=== PATIENT | male | born 1950 | race Caucasian/White ===

== ENCOUNTER 2022-10-02 07:30 | Outpatient (RCR) | payer MEDICARE, BC, SELFPAY ==
--- NOTE | 2022-08-21 09:11 | PT.OPEX ---
PT [facility] PT [facility] Outpatient Eval Start: 08/20/22 15:19 Freq: Status: Active Protocol: Document 08/21/22 09:05 SHASHANK (Rec: 08/21/22 09:10 SHASHANK [id number]) E-signed By Carolyn Duenas PT Physical Therapy Outpatient Evaluation Insurance Information Recert Due Date 11/13/22 Insurance Name Medicare B Medical Diagnosis Rt Hip Bursitis and ABD Tendonopathy Treating Diagnosis Pain at Rt hip/lat thigh Impaired stand/walk tolerance Reduced ease of ADL's/hobbies Reduced ease of A/D stairs and squatting Referring MD Dr Gabe Ladd Subjective Subjective Demian reports having Rt lateral hip and thigh pain for the past 2-3 months. He denies having any injury or incident which may have initiated pain. He did have a Rt MARICRUZ completed 09/18/2016, but the Dr took X-Rays and the replacement is secure and not involved with current pain reported. Sleeping is ok, unless he is on the Rt side for too long. Sitting is fine. Pain is increased with standing more than about [address] or walking more than about 10 min. Really reduces his ability to stay on task and complete any activities - yard work, home chores or even just standing socializing with friends. Pain is not constant, but when present it can be 7-10/10 along full side of thigh to knee. He denies ant/groin pain . Pain Comments 7-10/10 average when present. Pain free with sitting. Lateral thigh from hip to knee Taking Ibuprofen and Excedrine for pain Date of Last Physician Visit 09/05/22 Date of Surgery (If applicable) 09/18/16 Current Work Status Retired Precautions Treatment Precautions/Contraindications Arthritis, metal implante, Latex allergies, CT scan dye, Weight Bearing Status Full Weight Bearing Therapy Limitations/Systems Review Vision,Hearing Objective Range of Motion Rt hip ABD 0-45 / FF 0-90 / IR 0-10 / ER 0-30 Strength MMT 4-/5 breana hip EXT and ER. ABD and Flex are 5/5 and executed without pain Palpation Pain with pressure directly over Rt greater troch and ABD insertion point Balance & Gait No significant deviation. Slightly widened Betty SLS average 3 sec breana Posture Flattened lumbar spine Assessment Assessment/Impression 72 yo with DX of Rt hip Bursitis and ABD Tendonopathy. He arrived to dept via IND ambulation without any AD. He presents with slightly WBOS with stance and gait, slight increase in toe out posturing/ hip ER. He has flattened lumbar spine, slightly reduced heel to toe gait pattern, but symmetric WB. Deep squat to 65 deg prior to reducing WB into Rt involved LE. SLS 3 sec average breana. AROM is WFL and pain free both active and passively. MMT normal breana hip ABD, FF, however limited in breana EXT and ER 4-/5. Pain with moderate direct pressure over Rt greater troch/ABD insertion. He has reduced standing/walk tolerance, pain with A/D stairs and deep squat . Step up and over with noted breana hip IR and ADD. He will benefit from continued skilled physical therapy to provide DTM/MFR/cupping and progressive stretch/strength program to reduce symptoms and promote goal acquisition. Thank you for this referral. Plan of Care Rehabilitation Potential Good Physical Therapy Goals In 4-6 visits, Demian will be able to: 1. Sit to stand from recliner pain no greater than 5/10 75% of the time 2. A/D flight of 10 steps reciprocally without pain greater than 5/10 75% of the time In 8-10 visits, Demian will be able to: 1. Walk/stand for up to 30 min without pain greater than 3/ 10 90% of the time, resume light house keeping and errands/grocery shopping 2. Resume Breakfast Club with friends/socializing at least 2X/Wk without fear of pain increase and requiring assistance to get back to his car 3. His LTG: to be able to perform light shoveling this Winter without pain greater than 3/10 90% of the time, so as not to rely on friends for assistance. Coordination/Communication With Referral Source Treatment Plan/Direct Interventions Ice/Cold/Vasopneumatic,Joint Mobilization,Manual Therapy, Self-Care/Home Management, Therapeutic Activities, Therapeutic Exercises Frequency/Duration 1X/Wk for 10 visits Patient Will Be Discharged From Therapy Completion of LTG(s),Skills Plateau,Independent w/HEP, Independently Progressing Evaluation Billing Untimed Code Treatment Minutes 27 Complexity Moderate Certification Information Initial Certification Date 08/21/22 Ending Certification Date 11/13/22 Provider Signature Shows Agreement With POC & Medical Necessity Physician Signature & Date Requested Please Sign/Date Here Physician Comment/Change : Physician NPI Number #
== END 2022-11-07 08:37 | disposition home or self-care (01) ==
PROVIDERS: PCP Family Medicine; Visit Provider Orthopaedic Surgery
DX: M70.71 Other bursitis of hip, right hip (principal); Z51.89 Encounter for other specified aftercare
CPT/HCPCS: 97035; 97110; 97140; 97162

== ENCOUNTER 2023-12-02 13:03 | Emergency (ER) | payer MEDICARE, OTHER, SELFPAY ==
[2023-12-02 13:14] VITALS: BP 183/76; PULSE 91; RESP 16; TEMP 37.2; O2SAT 96; BMI 33.0
[2023-12-02] MEDS: diphenhydrAMINE 50 MG/ML inj IVP (13:45)
[2023-12-02] MEDS: HYDROCORTISONE SOD SUCCINATE 50 MG/ML inj 200 MG IVP (13:45)
[2023-12-02 14:16] LABS: Basophils Absolute Auto 0.07 K/uL (0.00-0.30); Basophils Percent Auto 0.8 % (0.0-3.0); Eosinophils Absolute Auto 0.34 K/uL (0.00-0.50); Eosinophils Percent Auto 4.1 % (0.0-7.0); Hematocrit 43.4 % (37.0-53.0); Hemoglobin* 14.5 gm/dL (13.5-17.5); Immature Granulocytes Abs Auto 0.04 K/uL (0.00-0.30); Immature Granulocytes Pct Auto 0.5 %; Lymphocytes Absolute Auto 2.68 K/uL (0.90-2.90); Lymphocytes Percent Auto 32.1 % (20-44); Mean Corpuscular HGB Conc 33 gm/dL (32-36); Mean Corpuscular Hemoglobin 31 pg (26-34); Mean Corpuscular Volume 94 fL (80-100); Monocytes Percent Auto 7.1 % (0.0-11.0); Neutrophils Absolute Auto 4.63 K/uL (1.7-7.0); Neutrophils Percent Auto 55.4 % (42.0-72.0); Platelet Count* 275 K/uL (140-440); RDW Coefficient of Variation % 13.7 % (11.5-15.5); Red Blood Count 4.62 m/uL (4.30-5.90); White Blood Count* 8.35 K/uL (4.50-11.00)
--- NOTE | 2023-12-02 14:16 | CT_ITS ---
Final Report Patient: ROCHELLE WILSON Facility:?[facility] Patient ID:?[id number] Site Patient ID:?[id number]. Site :?[id number] Study:?CT ST Neck W/IV-12/02/2023 3:32:07 PM Ordering Physician:CIARA Final Report: INDICATION: Facial swelling, left jaw pain. TECHNIQUE: Multiplanar CT examination of the soft tissues of the neck was performed after the administration of 112 mL of Isovue 370 intravenous contrast. COMPARISON: None. FINDINGS: Visualized intracranial structures: Trace mucosal thickening of the paranasal sinuses. Otherwise, unremarkable. Aerodigestive: The nasopharynx, oropharynx, hypopharynx and larynx appear unremarkable. The trachea remains patent and midline. The epiglottis is unremarkable. Mild effacement of the left piriform sinus, within normal limits. Tiny left palatine tonsilliths. Otherwise, the palatine tonsils are within normal limits. The base of tongue appears within normal limits. No discrete enhancing mass lesions identified. Salivary glands: There is asymmetric hyperenhancement and enlargement of the left parotid gland. The submandibular and right parotid glands are within normal limits. Thyroid gland: Unremarkable. Vascular: Moderate atherosclerotic calcifications of the aortic arch. Mild atherosclerotic calcifications of the carotid bulbs bilaterally, with probable mild stenosis of the bilateral proximal cervical internal carotid arteries. Otherwise, the vasculature remains patent. Soft tissues: Mild subcutaneous fat stranding involving the superficial soft tissues overlying the left parotid gland, with reactive thickening of the left platysma muscle. No prevertebral soft tissue edema. Lymph nodes: No pathologic lymph nodes by size criteria. Prominent cervical lymph nodes diffusely, likely reactive. Visualized lungs: The visualized lung apices are within normal limits. Dependent atelectasis. Linear bandlike opacification of the lungs bilaterally, likely subsegmental atelectasis or scarring. Bones: No acute osseous abnormalities mild multilevel degenerative changes of the cervical spine. IMPRESSION: Findings compatible with acute left parotitis, with mild overlying soft tissue swelling and reactive inflammation of the left platysma muscle. Please note that all CT scans at this facility use dose modulation, iterative reconstruction, and/or weight-based dosing when appropriate to reduce radiation dose to as low as reasonably achievable. Dictated by Oliverio Holder MD @ 12/03/2023 12:14:06 AM (Electronic Signature)
[2023-12-02 14:18] LABS: Slide Review Reflex No
[2023-12-02 14:20] LABS: Creatinine, Point-of-Care* 1.1 mg/dl (0.6-1.3)
[2023-12-02 14:28] LABS: Chloride* 108 mmol/L (96-114); Sodium* 141 mmol/L (135-149)
[2023-12-02 14:31] LABS: Est. Creatinine Clearance* 66.92; Estimated Glomerular Filt Rate 79 ml/min
[2023-12-02 14:32] LABS: Anion Gap 9 mEq/L (7-15); Blood Urea Nitrogen* 25 mg/dL (7-30); Calcium* 9.6 mg/dL (8.4-10.6); Carbon Dioxide* 24 mmol/L (20-32); Glucose* 142 mg/dL (60-115)
--- NOTE | 2023-12-02 14:57 | ED.GENADULT ---
HPI - General Adult General Chief complaint: Neck Injury/Pain Stated complaint: Swelling, pain L side neck Time Seen by Provider: 12/02/23 13:19 History of Present Illness HPI narrative: Patient is a 73-year-old male presenting for left jaw swelling. He states he knows the swelling this morning. Never had this before. It is says it is starting to get sore but pain is relatively minor. He has dentures and has not been having any mouth or jaw problems recently. Denies fevers, chills, lightheadedness, dizziness, chest pain, shortness of breath, difficulty breathing. States he had something similar happened a while ago at that time was allergic reaction and any felt his throat starting to close up but has not had those symptoms this time. The friend is dry at was the only other time he had jaw swelling like this. At this denies fevers, chills, headache, vision changes, weakness, numbness. No other concerns noted at this time Related Data Home Medications Medication Instructions Recorded Confirmed aspirin 81 mg tablet,delayed 81 mg PO DAILY 08/02/22 08/05/22 release [id number]-[id number]-[id number] 250 1 tab PO Q4-6H PRN 08/05/22 08/05/22 mg-250 mg-65 mg tablet (Excedrin Extra Strength) ibuprofen 200 mg tablet 800 mg PO Q6H PRN 08/05/22 08/05/22 rosuvastatin 10 mg tablet 10 mg PO QPM 12/02/23 12/02/23 tramadol 50 mg tablet 50 mg PO DAILY PRN pain 12/02/23 12/02/23 Allergies Allergy/AdvReac Type Severity Reaction Status Date / Time iodine Allergy Severe Anaphylaxis Verified 12/02/23 13:19 adhesive tape Allergy Rash Verified 08/05/22 09:21 droperidol Allergy Verified 08/05/22 09:21 gadodiamide Allergy Swelling, Verified 08/05/22 09:21 respiratory distress latex Allergy Rash Verified 08/05/22 09:21 oxycodone Allergy headache, Verified 08/05/22 09:21 vomitting Review of Systems Status of ROS: Reports: 6 or more systems reviewed and unremarkable except as noted in History and below [facility] Medical History Osteoarthritis of hip ?M16.9 - Osteoarthritis of hip, unspecified (ICD-10) Alcohol abuse (01/22/12) ?F10.10 - Alcohol abuse, uncomplicated (ICD-10) Alcohol abuse ?F10.10 - Alcohol abuse, uncomplicated (ICD-10) Depression ?F32.A - Depression, unspecified (ICD-10) Arthritis ?M19.90 - Unspecified osteoarthritis, unspecified site (ICD-10) GERD (gastroesophageal reflux disease) ?K21.9 - Gastro-esophageal reflux disease without esophagitis (ICD-10) Elevated cholesterol ?E78.00 - Pure hypercholesterolemia, unspecified (ICD-10) Surgical History Status post total replacement of hip ?Z96.649 - Presence of unspecified artificial hip joint (ICD-10) History of knee surgery ?Z98.890 - Other specified postprocedural states (ICD-10) History of surgery on arm ?Z98.890 - Other specified postprocedural states (ICD-10) History of thoracotomy ?Z98.890 - Other specified postprocedural states (ICD-10) History of right hip replacement ?Z96.641 - Presence of right artificial hip joint (ICD-10) Social History Smoking Status: Current every day smoker What tobacco products do you use: cigarettes Do you use any of these nicotine containing products: None Second hand tobacco smoke exposure: No Non-prescribed substance use: denies use Exam Narrative: Exam Narrative: Const: Well-nourished, Well-developed, in mild distress Eyes: PERRL, no conjunctival injection, and symmetrical lids HENT: Atraumatic external nose and ears. Moist mucous membranes. Neck: Symmetric, trachea midline, No thyromegaly. CVS: RRR, No murmurs or gallops. Peripheral pulses 2+ and equal in all extremities RESP: Unlabored respiratory effort. Clear to auscultation bilaterally. MSK:Extremities w/o deformity, Normal Active ROM Skin: Warm, Dry. No rashes or lesions. Neuro: Normal Muscle tone, No focal neurological deficits. Psych: Awake, Alert, & Oriented x3. Appropriate mood and affect. Const: Vital Signs, click to edit/add: Vital Signs - 24 hr 12/02/23 13:14 12/02/23 16:56 Temperature 98.9 F Pulse Rate [Pulse Oximeter] 91 82 Respiratory Rate 16 16 Blood Pressure [Ri ght Upper Arm] 183/76 H 172/97 H Pulse Oximetry 96 97 Oxygen Delivery Me thod Room Air Room Air Course Vital Signs Vital signs: Initial Vital Signs Temperature 98.9 F 12/02/23 13:14 Temperature Source Temporal Artery Scan 12/02/23 13:14 Pulse Rate 91 12/02/23 13:14 Respiratory Rate 16 12/02/23 13:14 Blood Pressure 183/76 H 12/02/23 13:14 Blood Pressure Mean 111 H 12/02/23 13:14 Blood Pressure Position Sitting 12/02/23 13:14 Pulse Oximetry 96 12/02/23 13:14 Oxygen Delivery Method Room Air 12/02/23 13:14 Vital Signs Temperature 98.9 F 12/02/23 13:14 Pulse Rate 91 12/02/23 13:14 Respiratory Rate 16 12/02/23 13:14 Blood Pressure 183/76 H 12/02/23 13:14 Pulse Oximetry 96 12/02/23 13:14 Oxygen Delivery Method Room Air 12/02/23 13:14 Temperature 98.9 F 12/02/23 13:14 Pulse Rate 82 12/02/23 16:56 Respiratory Rate 16 12/02/23 16:56 Blood Pressure 172/97 H 12/02/23 16:56 Pulse Oximetry 97 12/02/23 16:56 Oxygen Delivery Method Room Air 12/02/23 16:56 Medications Administered Medications: Discontinued Medications Generic Name Dose Route Start Last Admin Trade Name Kit PRN Reason Stop Dose Admin Diphenhydramine HCl 50 mg 12/02/23 13:29 12/02/23 13:45 Diphenhydramine 50 Mg/Ml Inj IVP 12/02/23 13:30 50 mg ONCE ONE Administration Hydrocortisone Sodium Succinate 200 mg 12/02/23 13:29 12/02/23 13:45 Hydrocortisone Sod Succinate 50 Mg/Ml Inj IVP 12/02/23 13:30 200 mg ONCE ONE Administration Medical Decision Making MDM Narrative Medical decision making narrative: Patient is a 73-year-old male presenting for left jaw swelling. First noticed it this morning. Previous similar symptoms also had associated throat swelling and signs of allergic reaction. Fast not occur at this time he states he just has the jaw swelling. Very mild pain at this time. Has not noticed a dry mouth or any discharge coming from his cheeks. Denies fevers, chills, lightheadedness. He is otherwise doing well. This time appears to be parotitis but more order CT scan to rule out any abscess formation. He is not having any testicular pain. CBC CMP and he ordered. These returned showing no concerning findings. Preliminary read of the CT shows parotitis but no abscess. Mumps test is currently pending. He is otherwise doing walking be discharged home Official CT read returned next day and consistent with preliminary read Lab Data Labs: Lab Results 12/02/23 Range/Units 13:32 WBC 8.35 (4.50-11.00) K/uL RBC 4.62 (4.30-5.90) m/uL Hgb 14.5 (13.5-17.5) gm/dL Hct 43.4 (37.0-53.0) % MCV 94 (80-100) fL MCH 31 (26-34) pg MCHC 33 (32-36) gm/dL RDW Coeff of Myriam 13.7 (11.5-15.5) % Plt Count 275 (140-440) K/uL Neut % (Auto) 55.4 (42.0-72.0) % Lymph % (Auto) 32.1 (20-44) % [place] % (Auto) 7.1 (0.0-11.0) % Eos % (Auto) 4.1 (0.0-7.0) % Baso % (Auto) 0.8 (0.0-3.0) % Neut # (Auto) 4.63 (1.7-7.0) K/uL Lymph # (Auto) 2.68 (0.90-2.90) K/uL [place] # (Auto) 0.60 (0.00-0.90) K/UL Eos # (Auto) 0.34 (0.00-0.50) K/uL Baso # (Auto) 0.07 (0.00-0.30) K/uL Abs Immat Gran (auto) 0.04 (0.00-0.30) K/uL Imm/Tot Granulo (auto) 0.5 % Sodium 141 (135-149) mmol/L Potassium 4.0 (3.6-5.1) mmol/L Chloride 108 (96-114) mmol/L Carbon Dioxide 24 (20-32) mmol/L Anion Gap 9 (7-15) mEq/L BUN 25 (7-30) mg/dL Creatinine 1.0 (0.5-1.5) mg/dL Estimated Creat Clear 66.92 Estimated GFR 79 ml/min Glucose 142 H (60-115) mg/dL Calcium 9.6 (8.4-10.6) mg/dL POC Creatinine 1.1 (0.6-1.3) mg/dl Imaging Data CT neck soft tissue: Radiologist's impression: Findings compatible with acute left parotitis, with mild overlying soft tissue swelling and reactive inflammation of the left platysma muscle. Please note that all CT scans at this facility use dose modulation, iterative reconstruction, and/or weight-based dosing when appropriate to reduce radiation dose to as low as reasonably achievable. Dictated by Oliverio Holder MD @ 12/03/2023 12:14:06 AM Discharge Plan Discharge Clinical Impression: Acute parotitis Patient Disposition: Home, Self-Care Condition: Stable Instructions: Sialoadenitis (ED) Additional Instructions: Warm compresses and have some sour candies helps with the symptoms. If symptoms worsen return to emergency department for re-evaluation. If they persist follow-up with your primary care provider. Prescriptions: No Action aspirin 81 mg tablet,delayed release (DR/EC) 81 mg PO DAILY ibuprofen 200 mg tablet 800 mg PO Q6H PRN Excedrin Extra Strength 250-250-65 mg tablet 1 tab PO Q4-6H PRN tramadol 50 mg tablet 50 mg PO DAILY PRN (Reason: pain) rosuvastatin 10 mg tablet 10 mg PO QPM Follow Up/Referrals: Teresa Ahn DO [Primary Care Provider] - Stand Alone Forms: [employer] Info Instructions
[2023-12-02 16:56] VITALS: BP 172/97; PULSE 82; RESP 16; O2SAT 97
== END 2023-12-02 17:33 | disposition home or self-care (01) ==
PROVIDERS: Emergency Provider Student in an Organized Health Care Education/Training Program; PCP Family Medicine
DX: K11.21 Acute sialoadenitis (principal)
CPT/HCPCS: 36415; 70491; 80048; 82565; 85025; 86735; 96374; 96375; 99283; 99284; J1200; J1720; Q9967

== ENCOUNTER 2024-08-12 14:00 | Outpatient (RCR) | payer MEDICARE, OTHER, SELFPAY | END 2024-11-12 08:37 | disposition home or self-care (01) | PROVIDERS: PCP Family Medicine; Visit Provider Family Medicine | DX: M54.50 Low back pain, unspecified (principal); G89.29 Other chronic pain; M25.651 Stiffness of right hip, not elsewhere classified; M25.652 Stiffness of left hip, not elsewhere classified; M25.661 Stiffness of right knee, not elsewhere classified; R26.81 Unsteadiness on feet; Z51.89 Encounter for other specified aftercare | CPT/HCPCS: 97110; 97112; 97162 ==

== ENCOUNTER 2024-09-28 08:49 | Outpatient (CLI) | payer MEDICARE, OTHER, SELFPAY | END 2024-09-28 08:50 | disposition home or self-care (01) | LOC: INJ CL 08:49 | PROVIDERS: PCP Family Medicine; Visit Provider Family Medicine | DX: M54.16 Radiculopathy, lumbar region (principal); M51.369 Other intervertebral disc degeneration, lumbar region without mention of lumbar back pain or lower extremity pain | CPT/HCPCS: 64483; J1100; Q9966 ==